=== PATIENT | female | born 1995 | race Hispanic/Latino ===

== ENCOUNTER 2023-01-24 16:23 | Emergency (ER) | payer SELFPAY ==
[~2023-01-24] VITALS: Ht 170.2 cm; Wt 77.1 kg
[2023-01-24 18:07] LABS: CLARITY,URINE SL CLOUDY (CLEAR); COLOR,URINE YELLOW (YELLOW); KETONES,URINE NEGATIVE (NEGATIVE); LEUKOCYTE ESTERASE ,URINE MODERATE (NEGATIVE); NITRITE,URINE NEGATIVE (NEGATIVE); PROTEIN,URINE DIPSTICK NEGATIVE (NEGATIVE); URINE UROBILINOGEN 0.2 mg/dL (0.2 - 1)
[2023-01-24 18:08] LABS: BACTERIA,URINE FEW /HPF; RBC,URINE 0-5 /HPF (0-5)
[2023-01-24 18:09] LABS: EPITHELIAL CELLS,URINE FEW /LPF
[2023-01-24 18:10] LABS: WBC,URINE (MAN) >50 /HPF (0-5)
[2023-01-24] MEDS ORDERED: METRONIDAZOLE500 MG PO (18:39)
[2023-01-24] MEDS ORDERED: CEFDINIR300 MG PO (18:39)
== END 2023-01-24 18:47 | disposition home or self-care (01) ==
LOC: ER 16:35
DX: R30.0 Dysuria (principal); N30.90 Cystitis, unspecified without hematuria; N76.0 Acute vaginitis
CPT/HCPCS: 81001; 81025; 87210; 87491; 87591; 99284